=== PATIENT | male | born 1940 | race Hispanic/Latino ===

== ENCOUNTER 2020-11-08 11:48 | Emergency (ER) | payer MEDICARE ==
[~2020-11-08] VITALS: Ht 180.3 cm; Wt 77.1 kg
[2020-11-08] MEDS ORDERED: EPINEPHRINE HCL SYRINGE IV ONE (12:00)
[2020-11-08] MEDS ORDERED: SODIUM BICARBONATE 8.4% INJ 50 ML SYR IV ONE (12:00)
[2020-11-08] MEDS ORDERED: CALCIUM CHLORIDE 10% 1.36 MEQ/ML 10ML SYR IV ONE (12:00)
== END 2020-11-08 22:17 | disposition expired ==
LOC: ER 11:59
DX: I46.9 Cardiac arrest, cause unspecified (principal); I10 Essential (primary) hypertension; J44.9 Chronic obstructive pulmonary disease, unspecified; R13.10 Dysphagia, unspecified; M62.81 Muscle weakness (generalized); K21.9 Gastro-esophageal reflux disease without esophagitis; F41.9 Anxiety disorder, unspecified; G47.33 Obstructive sleep apnea (adult) (pediatric)
CPT/HCPCS: 31500; 92950; 99285; J0171